=== PATIENT | male | born 1975 | race Caucasian/White ===

== ENCOUNTER → 2020-05-04 | Outpatient (CLI) | payer OTHER ==
[~2020-05-04] MED LIST: ADVIL200 M3 PO; SILDENAFIL CITR50 MG PO
== END ==
LOC: LAB 08:00
PROVIDERS: ATTEND Student in an Organized Health Care Education/Training Program
DX: Z01.812 Encounter for preprocedural laboratory examination (principal); Z11.59 Encounter for screening for other viral diseases

== ENCOUNTER 2020-05-08 08:04 | Day surgery (SDC) | payer OTHER ==
[~2020-05-08] VITALS: Ht 185.4 cm; Wt 135.2 kg
--- NOTE | 2020-05-08 07:47 | H ---
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 HISTORY OF PRESENT ILLNESS: The patient is a 45-year-old gentleman who presented to the clinic in April of this year on referral from his family doctor on asymptomatic zone 2 left neck mass. He noted this mass for probably [address] scan of the neck demonstrated a large mass in zone 2 of the left neck and a fine needle aspiration did reveal this to be metastatic squamous cell carcinoma. On examination in the office, he was noted to not have any suspicious lesions in the left side of the aerodigestive tract but was noted to have a right AE fold mass. The patient does have a history of smokeless tobacco use. He has not had any symptoms directed to this right AE fold mass. He presents now to have a biopsy of this area. ALLERGIES TO MEDICATION: None. MEDICATIONS ON ADMISSION: Anastrozole 1 mg once a day, vitamin B12 injections, phentermine 37.5 mg daily, Viagra 50 mg tablet on an as needed basis, testosterone injections. PAST SURGICAL HISTORY: Notable for previous vasectomy, abdominal surgery. FAMILY HISTORY: Noncontributory. REVIEW OF SYSTEMS: Noted for current use of tobacco products in smoking form. He also has moderate alcohol intake. PHYSICAL EXAMINATION: GENERAL: Appears to be as appropriate stated age, height and weight. HEENT: Unremarkable for intranasal abnormalities, oral cavity or oropharyngeal abnormalities. The tonsils palpated normally as does the base of tongue. NECK: Within the neck, there is a palpable, mobile large zone 2 left neck mass. No other adenopathy is appreciated. CHEST: Clear. CARDIOVASCULAR: Regular rate, regular rhythm. [facility] [address] [place] [address] HISTORY AND PHYSICAL Name: DANISH GRULLON Room #: PRE [facility] M.R.#: [id number] Admission: Attend Phys: Luigi Shipman MD Discharge: Date of : 71 Report #: [id number] ASSESSMENT: History of right AE fold mass. PLAN: Will be for direct laryngoscopy and biopsy. <ELECTRONICALLY SIGNED> By: Luigi Shipman MD 05/08/20 0747 1152 1227 Luigi Shipman MD /nt
[2020-05-08 08:21] VITALS: BP 144/89
[2020-05-08 10:56] VITALS: BP 144/89
[2020-05-08 10:58] VITALS: BP 144/89
--- NOTE | 2020-05-14 18:06 | PATH ---
[facility] [place] [address] PATHOLOGY RPT PROCEDURE Name: DANISH GRULLON Room #: [facility] M.R.#: [id number] Admission: 05/08/20 Date of : 71 Discharge: 05/08/20 Report #: [id number] Path Case #: [id number] [facility] Accession Number: [id number] . 01 Material submitted: . PART A: skin - RIGHT AE FOLD FS. Modifiers: right PART B: skin - RIGHT AE FOLD . 02 Frozen section diagnosis: . FROZEN SECTION DIAGNOSIS (Claire Rosenthal MD) . FSA1 - Right AE fold, biopsy: - Markedly dysplastic squamous epithelium, multiple fragments. . . These findings are discussed with Dr. Luigi Shipman in OR1 and a written report is placed in the patient's chart. . . . GROSS DESCRIPTION A. Specimen A is received fresh from the OR labeled with the patient's name, and "right AE fold", consists of five red-stevenson fragments of tissue measuring 0.1 to 0.2 cm each. Submitted entirely for frozen section as FSA1, this is subsequently submitted for permanent sections as A1. (IUV:melody; 05/08/2020) . Frozen section performed at [facility], [address] [place] [address]. IZV/QMS . 02 Diagnosis: A. Squamous mucosa, right AE fold, biopsy: - SEVERE/MARKED SQUAMOUS DYSPLASIA. - No definite invasion identified. . B. Squamous mucosa, right AE fold, biopsy: - SEVERE/MARKED SQUAMOUS DYSPLASIA. - No definite invasion identified. (IUV:[facility] 05/11/2020) [facility] 05/11/2020 1231 Local . 02 Comment: Dr. Jolly Martinez has seen risk control representative slides of this case and concurs with the diagnosis rendered. (IUV:[facility] 05/11/2020) [address] [address] PATHOLOGY RPT PROCEDURE Name: DANISH GRULLON [id number] Admission: 05/08/20 Date of : 71 Discharge: 05/08/20 Report #: [id number] Path Case #: [id number] . 02 Addendum: . B. This addendum is issued subsequent to reviewing a properly controlled p16 immunohistochemical stain performed at the request of Dr. Luigi Shipman. The lesion shows strong and diffuse reactivity present on the properly controlled p16 immunohistochemical stain. The originally rendered diagnoses and interpretation remain unchanged. (IUV:melody; 05/14/2020) . . Professional services performed by [facility] at [facility], [address] , [place] [address]. Technical services performed by [facility] at [address] [place] [address], [address], [place] [address]. MBR/05/14/2020 Addendum Electronically Signed by Claire Rosenthal MD, Pathologist . 02 Electronically signed: . Claire Rosenthal MD, Pathologist NPI- [id number] . 01 Gross description: . A. PLEASE SEE GROSS DESCRIPTION UNDER FROZEN SECTION HEADING. . B. Specimen B is received in formalin labeled with the patient's name, and "right AE fold", consists of three red-stevenson fragments of tissue measuring 0.3 to 0.4 cm each. Wrapped in tissue paper and submitted in entirety for permanent sections only as B1. (IUV:melody; 05/08/2020) /QMS 05/08/2020 1303 Local . 02 Pathologist provided ICD-10: L98.8 . 02 CPT . 519301, 075563, 729121, Z95243 Specimen Comment: Report sent to Specimen Comment: A duplicate report has been generated due to demographic updates. Performed at: [address], [place], [place] [id number] MD José Khan MD Phone: [phone] Performed at: 02 [facility] [address], [place], [place] [id number] MD Claire Rosenthal MD Phone: [phone]
--- NOTE | 2020-05-15 07:46 | O ---
[facility] [place] [address] OPERATIVE REPORT Name: DANISH GRULLON Room #: [facility]P [facility]..#: [id number] Admission: 05/08/20 Attend Phys: Luigi Shipman MD Discharge: 05/08/20 Date of : 71 Report #: [id number] THIS REPORT FOR: cc: NORMA HE Physician not on staff Luigi Shipman MD ~ CC: NORMA Shipman Physician staff DATE OF SERVICE: 05/08/2020 PREOPERATIVE DIAGNOSIS: Squamous cell carcinoma, left neck, right AE fold mass. POSTOPERATIVE DIAGNOSIS: Squamous cell carcinoma, left neck, right AE fold mass. PROCEDURE: Direct laryngoscopy with biopsy. SURGEON: Luigi Shipman MD ANESTHESIA: General oral endotracheal 6.0 ET tube. TECHNIQUE: After obtaining consent, the patient was brought to the operating suite, appropriate timeout was performed. General endotracheal anesthesia was obtained via direct visualization. The bed was turned 90 degrees. He was placed in a head sniffing position with small shoulder rolls. Direct palpation of the neck revealed only the palpable left zone 2 neck mass, which has not changed in size or position. Intraoral evaluation demonstrates missing multiple dentitions. There was a loose right lower central incisor. Palpation of the floor of mouth, tongue and tongue base was unremarkable to digital palpation. Palpation of the tonsil on both the left and the right side did not reveal any firmness. Direct visualization of both tonsils showed them to be 1+ in size with small crypts. The oropharynx was intubated and the Dedo scope was advanced into the hypopharynx. The lingual tonsil mucosa was hypertrophied, but did not bleed. The epiglottis was thickened in both the lingual and laryngeal surfaces, but otherwise appears smooth. The left AE fold appears to be unremarkable. There was a large, normal fleshy appearance to the right AE fold although it was greatly enlarged and somewhat botryoidal in nature. Biopsies were taken of this area directly with frozen section returning as highly dysplastic, but no evidence of invasion tumor. Multiple biopsies were then taken for permanent sectioning in the same area. I then intubated the right piriform sinus and the medial and lateral duval appear unremarkable, although the apex of the piriform sinus was not able to be reached. The postcricoid area appears to be unremarkable for any swelling or growth in that area. I then advanced into the larynx itself lifting the epiglottis superiorly. Both true vocal cords appeared [facility] [address] [place] [address] OPERATIVE REPORT Name: DANISH GRULLON Room #: [facility]P [facility] Purnima.David.#: [id number] Admission: 05/08/20 Attend Phys: Luigi Shipman MD Discharge: 05/08/20 Date of : 71 Report #: [id number] unremarkable. The immediate subglottic area appears normal. The false vocal cords also appeared normal. 0.5 x 0.5 cottonoids were used to control mild oozing in the area. It should be noted that the area of concern of the right AE fold was extremely friable as even simple intubation did cause some oozing from this area. While awaiting for the frozen section results, the remainder of the laryngoscopy on the left side including the left AE fold, left piriform mucosa and the left hypopharyngeal wall was examined and found to be unremarkable. After receiving frozen section diagnosis, more permanent sections were taken. Hemostasis was maintained. He was then returned back to anesthesia where he was lightened, extubated and taken to the recovery room in stable condition. ESTIMATED BLOOD LOSS: Less than 10 mL. <ELECTRONICALLY SIGNED> By: Luigi Shipman MD 05/15/20 0746 1038 1133 Luigi Shipman MD /nt
== END 2020-05-08 11:45 | disposition home or self-care (01) ==
LOC: OR 08:04 → TBA 08:04 → OR 10:07
PROVIDERS: ATTEND Otolaryngology
DX: L98.8 Other specified disorders of the skin and subcutaneous tissue (principal); R22.1 Localized swelling, mass and lump, neck; F17.210 Nicotine dependence, cigarettes, uncomplicated; Z98.890 Other specified postprocedural states; Z79.899 Other long term (current) drug therapy
CPT/HCPCS: 50010; 50101; 62110; 62900; 70005